=== PATIENT | female | born 1950 | race Asian ===

== ENCOUNTER 2023-01-08 13:08 | Inpatient (IN) | payer MEDICARE, MEDICAID ==
[~2023-01-08] VITALS: Ht 152.4 cm; Wt 43.5 kg
[2023-01-08] MEDS ORDERED: ONDANSETRON HCL 4MG/2ML INJ IV STA (14:24)
[2023-01-08] MEDS ORDERED: SODIUM CHLORIDE 0.9% 1,000 ML IV ONE (14:30)
[2023-01-08] MEDS ORDERED: MORPHINE SULFATE 2 MG/ML CPJ (NOT FOR IM USE) IV NR (14:45)
[2023-01-08 14:54] LABS: BASOPHILS % 0.4 % (0.0-2.0); HEMATOCRIT. 35.3 % (36.0-48.0); HEMOGLOBIN. 12.2 g/dL (12.0-16.0); MEAN CORPUSCULAR HEMOGLOBIN 32.2 pg (28.0-32.0); MEAN CORPUSCULAR HGB CONC 34.7 g/dL (31.0-37.0); MEAN CORPUSCULAR VOLUME 92.8 fL (81.0-99.0); MEAN PLATELET VOLUME 7.5 fl (7.4-10.4); MONOCYTES % 5.5 % (2.0-8.0); NEUTROPHILS % 72.1 % (40.0-76.0); PLATELET 376 x1000/uL (130-400); RED CELL DISTRIBUTION WIDTH 12.7 % (11.6-14.6); WHITE BLOOD COUNT 9.5 x1000/uL (4.5-11.0)
[2023-01-08 15:09] LABS: INDEX HEMOLYSI 1 (1-3); INDEX ICTERIC 1 (1-4); INDEX LIPEMIC 1 (1-3)
[2023-01-08 15:10] LABS: CHLORIDE 97 mEq/L (98-107); POTASSIUM 3.1 mEq/L (3.5-5.1); SODIUM 132 mEq/L (136-145)
[2023-01-08 15:31] LABS: ALANINE AMINOTRANSFERASE 12 IU/L (13-61); ALBUMIN 2.5 g/dL (3.4-5.0); ASPARTATE AMINOTRANSFERASE 11 IU/L (15-37); BILIRUBIN TOTAL 0.6 mg/dL (0.1-1.0); CALCIUM 8.6 mg/dL (8.5-10.1); CARBON DIOXIDE 16 mEq/L (21-32); CREATININE 0.8 mg/dL (0.6-1.3); GLUCOSE 287 mg/dL (70-105); PROTEIN TOTAL 7.7 g/dL (6.0-8.3); UREA NITROGEN BLOOD 23 mg/dL (7-21)
[2023-01-08] MEDS ORDERED: POTASSIUM CHLORIDE 20MEQ TABLET SR PO NR (15:45)
[2023-01-08] MEDS ORDERED: MAGNESIUM 2 G PREMIX 50 ML IV NR (15:45)
[2023-01-08 16:03] LABS: BETA HYDROXYBUTYRATE <0.1 mMol/L mMol/L (0.0-0.3)
[2023-01-08] MEDS ORDERED: LORAZEPAM 2MG/ML CPJ IV NR (17:45)
[2023-01-08] MEDS ORDERED: INSULIN REGULAR (HUMULIN R) 300UNITS/3ML VIAL IV NR (18:15)
[2023-01-08] MEDS ORDERED: LORAZEPAM 0.5MG TABLET PO PRN (19:15)
[2023-01-08] MEDS ORDERED: DOCUSATE SODIUM 100MG CAPSULE PO PRN (19:15)
[2023-01-08] MEDS ORDERED: ONDANSETRON HCL 4MG/2ML INJ IV PRN (19:15)
[2023-01-08] MEDS ORDERED: HYDROCODONE/ACETAMINOPHEN 5/325MG TABLET PO PRN (19:15)
[2023-01-08] MEDS ORDERED: ACETAMINOPHEN 325MG TABLET PO PRN ×2 (19:15)
[2023-01-08] MEDS ORDERED: IPRATROPIUM/ALBUTEROL 0.5-3(2.5)MG/3ML NEB HHN PRN (19:15)
[2023-01-08] MEDS: MORPHINE SULFATE 2 MG/ML CPJ (NOT FOR IM USE) IV NR (19:23)
[2023-01-08] MEDS ORDERED: NALOXONE HCL 0.4MG/ML VIAL IV PRN (19:30)
[2023-01-08] MEDS ORDERED: INSULIN REGULAR (HUMULIN R) 300UNITS/3ML VIAL ONE ×2 (19:59→20:09)
[2023-01-08 20:02] LABS: CLARITY URINE TURBID (CLEAR); COLOR URINE YELLOW (YELLOW); GLUCOSE URINE 3+ (NEGATIVE); KETONES URINE 3+ (NEGATIVE); LEUKOCYTE ESTERASE URINE 2+ (NEGATIVE); NITRITE URINE POSITIVE (NEGATIVE); OCCULT BLOOD URINE 2+ (NEGATIVE); PH URINE 5.5 (4.5-8.0); PROTEIN URINE 4+ (NEGATIVE); SPECIFIC GRAVITY URINE 1.022 (1.005-1.030); UROBILINOGEN URINE 0.2 E.U./dL (0.2-1.0)
[2023-01-08 20:12] LABS: INDEX HEMOLYSI 1 (1-3)
[2023-01-08 20:15] LABS: AMMONIA < 10 uMol/L (<32)
[2023-01-08 20:25] LABS: BACTERIA URINE 4+; SQUAMOUS EPITHELIAL CELL URINE 3+ /lpf (RARE/1+); WBC URINE TNTC /hpf (0-2)
[2023-01-08] MEDS: CLONIDINE 0.1MG TABLET PO PRN (22:42)
[2023-01-09 03:00] VITALS: BP 166/79; PULSE 80; RESP 18; TEMP 96.8
[2023-01-09 04:53] VITALS: BP 166/78; PULSE 83; RESP 20; TEMP 96.8
[2023-01-09] MEDS: CLONIDINE 0.1MG TABLET PO PRN (07:01)
[2023-01-09] MEDS ORDERED: DEXTROSE 50% WATER 50ML SYRINGE IV PRN (07:15)
[2023-01-09] MEDS: BLOOD SUGAR DIAGNOSTIC STRIP TEST SCH ×4 (07:37→21:21)
[2023-01-09] MEDS: INSULIN LISPRO 100 UNITS/ML SUBCUT SCH ×4 (07:50→23:21)
[2023-01-09 08:00] VITALS: BP 153/72; PULSE 79; RESP 18; TEMP 96.8
[2023-01-09 09:50] LABS: BASOPHILS % 0.4 % (0.0-2.0); EOSINOPHILS % 0.2 % (0.0-5.0); HEMATOCRIT. 32.8 % (36.0-48.0); HEMOGLOBIN. 11.1 g/dL (12.0-16.0); LYMPHOCYTES % 25.5 % (20.0-50.0); MEAN CORPUSCULAR HEMOGLOBIN 31.9 pg (28.0-32.0); MEAN CORPUSCULAR VOLUME 94.1 fL (81.0-99.0); MEAN PLATELET VOLUME 7.5 fl (7.4-10.4); MONOCYTES % 6.3 % (2.0-8.0); NEUTROPHILS % 67.6 % (40.0-76.0); PLATELET 343 x1000/uL (130-400); RED BLOOD CELL COUNT 3.48 mill/uL (4.2-5.4); WHITE BLOOD COUNT 9.1 x1000/uL (4.5-11.0)
[2023-01-09 11:55] VITALS: BP 120/58; PULSE 82; RESP 18; TEMP 97.9
[2023-01-09] MEDS ORDERED: CEFTRIAXONE 1GM PREMIX 50 ML IV SCH (14:45)
[2023-01-09 16:00] VITALS: BP 141/64; PULSE 81; RESP 20; TEMP 98.6
[2023-01-09] MEDS: CEFTRIAXONE 1,000 MG in DEXTROSE 5% WATER 50 ML IV SCH (16:00)
[2023-01-09 20:00] VITALS: BP 112/61; PULSE 75; RESP 18; TEMP 97.9
[2023-01-09] MEDS: INSULIN GLARGINE 100 UNITS/ML SUBCUT SCH (23:21)
[2023-01-10] VITALS: BP 108/57; PULSE 75; RESP 18; TEMP 97.7
[2023-01-10 04:00] VITALS: BP 109/55; PULSE 80; RESP 18; TEMP 97.8
[2023-01-10] MEDS: BLOOD SUGAR DIAGNOSTIC STRIP TEST SCH ×4 (05:58→21:10)
[2023-01-10 06:33] LABS: BASOPHILS % 0.4 % (0.0-2.0); EOSINOPHILS % 1.1 % (0.0-5.0); HEMOGLOBIN. 10.4 g/dL (12.0-16.0); LYMPHOCYTES % 29.6 % (20.0-50.0); MEAN CORPUSCULAR HEMOGLOBIN 31.6 pg (28.0-32.0); MEAN CORPUSCULAR HGB CONC 35.8 g/dL (31.0-37.0); MEAN CORPUSCULAR VOLUME 88.2 fL (81.0-99.0); MEAN PLATELET VOLUME 7.4 fl (7.4-10.4); MONOCYTES % 7.9 % (2.0-8.0); PLATELET 346 x1000/uL (130-400); RED BLOOD CELL COUNT 3.29 mill/uL (4.2-5.4); RED CELL DISTRIBUTION WIDTH 12.7 % (11.6-14.6); WHITE BLOOD COUNT 9.8 x1000/uL (4.5-11.0)
[2023-01-10] MEDS: INSULIN LISPRO 100 UNITS/ML SUBCUT SCH ×4 (09:43→21:56)
[2023-01-10 10:04] LABS: CALCIUM 7.9 mg/dL (8.5-10.1); POTASSIUM 3.6 mEq/L (3.5-5.1)
[2023-01-10 10:18] LABS: CREATININE 1.1 mg/dL (0.6-1.3)
[2023-01-10 12:00] VITALS: BP 139/56; PULSE 82; RESP 20; TEMP 97.7
[2023-01-10] MEDS: METRONIDAZOLE 500 MG PREMIX 100 ML IV SCH ×2 (12:51→19:54)
[2023-01-10] MEDS: CEFTRIAXONE 1,000 MG in DEXTROSE 5% WATER 50 ML IV SCH (15:10)
[2023-01-10] MEDS ORDERED: METF-414 MT ×2 (15:32)
[2023-01-10] MEDS ORDERED: INSU100I28 SQ (15:32)
[2023-01-10] MEDS ORDERED: NITR100C MT (15:32)
[2023-01-10 16:00] VITALS: BP_SYST 125; BP_SYST 129; BP_DIAS 56; BP_DIAS 77; PULSE 83; PULSE 92; RESP 19; RESP 20; TEMP 97.5; TEMP 98.1
[2023-01-10] MEDS ORDERED: DOCUSATE SODIUM 250MG CAPSULE PO PRN (19:30)
[2023-01-10 20:00] VITALS: BP 132/60; PULSE 83; RESP 20; TEMP 98.4
[2023-01-10] MEDS: INSULIN GLARGINE 100 UNITS/ML SUBCUT SCH (21:55)
[2023-01-11] VITALS: BP 153/70; PULSE 79; RESP 18; TEMP 97.6
[2023-01-11] MEDS: METRONIDAZOLE 500 MG PREMIX 100 ML IV SCH ×2 (03:44→13:02)
[2023-01-11 04:08] VITALS: BP 147/69; PULSE 78; RESP 18; TEMP 98.5
[2023-01-11] MEDS: BLOOD SUGAR DIAGNOSTIC STRIP TEST SCH ×2 (05:43→12:10)
[2023-01-11] MEDS: INSULIN LISPRO 100 UNITS/ML SUBCUT SCH ×2 (05:49→12:47)
[2023-01-11 08:00] VITALS: BP 161/95; PULSE 89; RESP 20; TEMP 95.5
[2023-01-11] MEDS ORDERED: AMLO5TAB88 MT ×3 (08:55→12:18)
[2023-01-11] MEDS ORDERED: AMLODIPINE 5MG TABLET PO SCH (09:30)
[2023-01-11 12:00] VITALS: BP 181/81; PULSE 91; RESP 20; TEMP 97.7
[2023-01-11 12:12] VITALS: BP 181/81; PULSE 91; TEMP 97.7; O2SAT 94
[2023-01-11] MEDS ORDERED: AMLODIPINE 5MG TABLET PO NR (12:30)
[2023-01-11] MEDS ORDERED: INSULIN LISPRO 100 UNITS/ML SUBCUT SCH (14:15)
[2023-01-11] MEDS ORDERED: DEXTROSE 50% WATER 50ML SYRINGE IV PRN (14:15)
[2023-01-11] MEDS: CEFTRIAXONE 1,000 MG in DEXTROSE 5% WATER 50 ML IV SCH (14:20)
[2023-01-11] MEDS ORDERED: BLOOD SUGAR DIAGNOSTIC STRIP TEST SCH (17:20)
[2023-01-12] MEDS ORDERED: AMLODIPINE 5MG TABLET PO SCH (09:00)
== END 2023-01-11 16:55 | disposition home health service (06) | DRG 391 ==
LOC: ER 13:08 → EDBEDREQ 18:07 → MICUSO 18:37 → EDBEDREQ 18:41 → EDBEDREQTM 18:41 → 6EST 01-09 03:31
PROVIDERS: ADMIT Family Medicine Adult Medicine; ATTEND Family Medicine Adult Medicine
DX: K52.9 Noninfective gastroenteritis and colitis, unspecified (principal); E11.00 Type 2 diabetes mellitus with hyperosmolarity without nonketotic hyperglycemic-hyperosmolar coma (NKHHC); E87.1 Hypo-osmolality and hyponatremia; N12 Tubulo-interstitial nephritis, not specified as acute or chronic; Z83.3 Family history of diabetes mellitus; Z79.899 Other long term (current) drug therapy
CPT/HCPCS: 36415; 74176; 80048; 80053; 81003; 82010; 82140; 82962; 83036; 83605; 84145; 85025; 87077; 87186; 87804; 93005; 97162; 99285; J0696; J1815; J2270; J2405; J3475; J3490; J7030; J7060